=== PATIENT | female | born 1995 | race Caucasian/White ===

== ENCOUNTER → 2017-03-05 | Outpatient (CLI) | payer OTHER ==
[~2017-03-05] MED LIST: LEVOTHYROXINE75 MCG PO; MIRALAX17 GM PO; PERCOCET5/325 PO; VITAMIN D32000 UNI1 PO; XARELTO10 MG PO
--- NOTE | ~2017-03-05 | EKG ---
PATIENT: LYNN ANTHONY UNIT #: [id number] Ventricular Rate: 76 BPM Atrial Rate: 76 BPM P-R Interval: 156 ms QRS Duration: 82 ms Q-T Interval: 380 ms QTC Calculation(Bezet): 427 ms P [place]: 6 degrees Calculated R [place]: 44 degrees Calculated T [place]: 14 degrees Diagnosis Line: Normal sinus rhythm Diagnosis Line: Normal ECG Diagnosis Line: No previous ECGs available Diagnosis Line: Confirmed by MARTHA ROB MD ([id number]) on Diagnosis Line: 03/06/2017 8:48:26 AM INTERPRETING MD: DARRON DIAZ
[2017-03-05 16:00] LABS: BUN/CREATININE RATIO 14.28; CALCIUM SERUM 9.1 mg/dL (8.4-10.2); CREATININE SERUM 0.7 mg/dL (0.6-1.4); GLOM FILT RATE Estimated 122.1 mL/min (>60); POTASSIUM 3.8 mmol/L (3.5-5.1)
== END | disposition home or self-care (01) ==
LOC: CAMB 14:00
PROVIDERS: Orthopaedic Surgery
DX: Z01.818 Encounter for other preprocedural examination (principal); S92.001A Unspecified fracture of right calcaneus, initial encounter for closed fracture; M19.071 Primary osteoarthritis, right ankle and foot
CPT/HCPCS: 36415; 80048; 93005

== ENCOUNTER 2017-03-26 05:36 | Inpatient (IN) | payer OTHER ==
--- NOTE | ~2017-03-26 | BMI ---
[facility] Nutrition Therapy DATE: 03/27/17 Patient: LYNN CHEN GABRIELLE Physician: MYRIAM Address: [address] [place] [address] Room/Bed: [address] [place] [address], Zip: [place] [address] Admit Date: 03/26/17 Date of : [birth year] Height: 5 4 Weight: 242 110 HIGH BMI NOTE: DX: 21 y/o female admitted for right subtalor DJD calcaneal ANTHROPOMETRICS: 5'4", 242# (110 kg), BMI 41 DIET: Regular INTERVENTION: 1. Regular diet RECOMMENDATIONS: 1. Change regular diet order to healthy heart diet in order to promote gradual weight loss toward a healthy BMI (19.0-25.0) or +/-10% IBW. Rd will f/u per protocol. Respectfully, KINJAL CAMPBELL, jewelry internship Andrews Vilchis MS, RD, LD Food and Nutritional Services [facility] cc: client file
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
[~2017-03-26 05:36] MED LIST changes: -PERCOCET5/325 PO; -XARELTO10 MG PO
[2017-03-27 03:11] LABS: HEMATOCRIT 34.7 % (35.0-45.0); HEMOGLOBIN 11.5 gm/dL (12.0-16.0)
[2017-03-28 03:25] LABS: HEMATOCRIT 32.2 % (35.0-45.0); HEMOGLOBIN 10.9 gm/dL (12.0-16.0)
[2017-03-28] MEDS ORDERED: XARELTO10 MG PO (12:54)
[2017-03-28] MEDS ORDERED: PERCOCET5/325 PO (12:55)
== END 2017-03-28 15:31 | disposition home or self-care (01) | DRG 481 ==
LOC: CSUR 05:36 → CPACUOF 10:13 → CSUR 10:13 → CPACUOF 10:30 → C4B 10:30 → CPACUOF 12:38 → C4B 12:38 → CSUR 14:00 → C4B 03-28 15:31
PROVIDERS: Orthopaedic Surgery
PROC: 0SGH07Z Fusion of Right Tarsal Joint with Autologous Tissue Substitute, Open Approach (ICD-10-PCS; 2017-03-26)
PROC: 0QBG0ZZ Excision of Right Tibia, Open Approach (ICD-10-PCS; 2017-03-26)
PROC: 0LQS0ZZ Repair Right Ankle Tendon, Open Approach (ICD-10-PCS; 2017-03-26)
PROC: 0L8V0ZZ Division of Right Foot Tendon, Open Approach (ICD-10-PCS; 2017-03-26)
PROC: 0SH Lower Joints, Insertion (ICD-10-PCS; 2017-03-26)
PROC: 0L8V0ZZ Division of Right Foot Tendon, Open Approach (ICD-10-PCS; 2017-03-26)
PROC: 0L8V0ZZ Division of Right Foot Tendon, Open Approach (ICD-10-PCS; 2017-03-26)
PROC: 0SH904Z Insertion of Internal Fixation Device into Right Hip Joint, Open Approach (ICD-10-PCS; 2017-03-26)
PROC: 0SH904Z Insertion of Internal Fixation Device into Right Hip Joint, Open Approach (ICD-10-PCS; 2017-03-26)
PROC: 0SGH04Z Fusion of Right Tarsal Joint with Internal Fixation Device, Open Approach (ICD-10-PCS; principal; 2017-03-26 07:30)
PROC: 0SH904Z Insertion of Internal Fixation Device into Right Hip Joint, Open Approach (ICD-10-PCS; 2017-03-26 07:30)
PROC: 0SPF04Z Removal of Internal Fixation Device from Right Ankle Joint, Open Approach (ICD-10-PCS; 2017-03-26 07:30)
DX: M19.171 Post-traumatic osteoarthritis, right ankle and foot (principal); Z68.41 Body mass index [BMI] 40.0-44.9, adult; M20.5X1 Other deformities of toe(s) (acquired), right foot; S92.001A Unspecified fracture of right calcaneus, initial encounter for closed fracture; E03.9 Hypothyroidism, unspecified; E66.01 Morbid (severe) obesity due to excess calories
CPT/HCPCS: 84703; 85014; 85018; 88300; 94760; 97116; 97161; 97530; C1713; J0131; J0330; J1170; J2250; J2270; J2550; J2710; J2795; J3010; J3370